=== PATIENT | female | born 1970 | race African-American/Black ===

== ENCOUNTER 2017-06-08 08:10 | Emergency (ER) | payer MEDICAID, OTHER ==
[~2017-06-08] VITALS: Ht 172.7 cm; Wt 95.0 kg
[~2017-06-08 08:10] MED LIST: NO MEDS
[2017-06-08] MEDS ORDERED: NORCO (08:14)
[2017-06-08] MEDS ORDERED: KETOROLAC 30MG/ML VIAL IM ONE (10:30)
[2017-06-08] MEDS ORDERED: HYDROCODONE/ACETAMINOPHEN 10/325MG TABLET PO ONE (10:30)
[2017-06-08 11:15] VITALS: BP 131/100
== END 2017-06-08 12:00 | disposition home or self-care (01) ==
LOC: ER 08:10
DX: M54.30 Sciatica, unspecified side (principal); F17.200 Nicotine dependence, unspecified, uncomplicated; Z98.890 Other specified postprocedural states; Z98.84 Bariatric surgery status
CPT/HCPCS: 96372; 99283; J1885